=== PATIENT | female | born 1990 | race Caucasian/White ===

== ENCOUNTER → 2021-05-18 10:59 | Outpatient (CLI) | payer OTHER, SELFPAY ==
[2021-05-23 00:06] LABS: Chlamydia By Nucleic Acid AMP Negative (Negative)
[2021-05-23 12:08] LABS: Gonococcus By Nucleic Acid AMP Negative (Negative)
== END ==
PROVIDERS: Visit Provider Student in an Organized Health Care Education/Training Program
DX: Z11.3 Encounter for screening for infections with a predominantly sexual mode of transmission (principal)
CPT/HCPCS: 87491; 87591

== ENCOUNTER → 2021-05-26 08:56 | Outpatient (CLI) | payer OTHER, SELFPAY ==
[2021-05-26 09:45] LABS: Absolute Lymphocyte Count 1.54 X10^3/uL (0.83-4.51); Absolute Neutrophil Count 5.7 X10^3/uL (2.0-7.7); Basophil# 0.02 X10^3/uL; Basophil% 0.3 % (0-1); Eosinophil# 0.07 X10^3/uL; Eosinophils% 0.9 % (0-5); Hematocrit 36.3 % (37-47); Hemoglobin 11.7 g/dL (12.0-15.0); Lymphocyte # 1.54 X10^3/ul (0.83-4.51); Mean Corp Hgb Conc 32.2 g/dL (32-36); Mean Platelet Vol. 9.9 fl (6.2-12.0); Monocyte# 0.37 X10^3/uL; Monocyte% 4.8 % (0-10); NRBC Flagged by Analyzer 0 % (0-5); Neutrophil # 5.67 X10^3/uL (2.7-7.7); Neutrophil % 73.5 % (47-70); Platelet Count 267 K/mm3 (150-450); RBC Distribution Width CV 12.9 % (11.6-14.6); RBC Distribution Width SD 45.7 fl (35.1-43.9); Red Blood Count 3.78 M/mm3 (4.2-5.4); White Blood Count 7.7 K/mm3 (4.4-11.0)
[2021-05-26 10:44] LABS: HIV - WCH Non-Reactive (Nonreactive); Hepatitis B Surface Antigen Non-Reactive (Nonreactive); Hepatitis C Antibody Non-Reactive (Nonreactive); Rubella IgG Reactive (Nonreactive); Syphilis Antibodies Non-reactive
== END ==
PROVIDERS: Visit Provider Student in an Organized Health Care Education/Training Program
DX: Z34.81 Encounter for supervision of other normal pregnancy, first trimester (principal)
CPT/HCPCS: 36415; 85025; 86703; 86762; 86780; 86803; 87086; 87088; 87340

== ENCOUNTER 2021-09-14 10:55 | Outpatient (CLI) | payer OTHER, MEDICAID, SELFPAY ==
[2021-09-14 12:10] LABS: Hemoglobin 11.4 g/dL (12.0-15.0); Mean Corp Hgb Conc 33.5 g/dL (32-36); Mean Corpuscular Hgb 32.2 pg (27.0-32.0); Mean Platelet Vol. 9.7 fl (6.2-12.0); Platelet Count 331 K/mm3 (150-450); RBC Distribution Width CV 12.5 % (11.6-14.6); RBC Distribution Width SD 44.6 fl (35.1-43.9); Red Blood Count 3.54 M/mm3 (4.2-5.4); White Blood Count 9.3 K/mm3 (4.4-11.0)
[2021-09-14 12:12] LABS: Glucose Challenge Gest 1H 50g 123 mg/dL (70-140)
== END 2021-09-14 23:59 | disposition home or self-care (01) ==
PROVIDERS: Visit Provider Student in an Organized Health Care Education/Training Program
DX: Z34.83 Encounter for supervision of other normal pregnancy, third trimester (principal)
CPT/HCPCS: 36415; 82950; 85027

== ENCOUNTER → 2021-12-06 | Outpatient (CLI) | payer OTHER, MEDICAID, SELFPAY | END | disposition home or self-care (01) | LOC: LABSPEC 11:19 | PROVIDERS: Visit Provider Obstetrics & Gynecology | DX: Z36.85 Encounter for antenatal screening for Streptococcus B (principal) | CPT/HCPCS: 87077; 87081; 87186 ==

== ENCOUNTER 2021-12-28 16:50 | Inpatient (IN) | payer OTHER, MEDICAID, SELFPAY ==
[2021-12-28] VITALS (16 sets, daily range): BP systolic 97–124; BP diastolic 49–69; PULSE 56–88; RESP 16; TEMP 36.5–37.9; O2SAT 99–100; BMI 19.7
[2021-12-28] MEDS: LACTATED RINGERS 500 ML 999 ML IV (17:10)
[2021-12-28 17:18] LABS: Absolute Lymphocyte Count 2.52 X10^3/uL (0.83-4.51); Absolute Neutrophil Count 12.1 X10^3/uL (2.0-7.7); Basophil# 0.04 X10^3/uL; Basophil% 0.3 % (0-1); Eosinophil# 0.09 X10^3/uL; Eosinophils% 0.6 % (0-5); Hematocrit 38.3 % (37-47); Hemoglobin 12.8 g/dL (12.0-15.0); Lymphocyte # 2.52 X10^3/ul (0.83-4.51); Lymphocyte % 16.1 % (19-41); Mean Corp Hgb Conc 33.4 g/dL (32-36); Mean Corpuscular Hgb 31.3 pg (27.0-32.0); Mean Corpuscular Volume 93.6 fL (81-99); Mean Platelet Vol. 11.2 fl (6.2-12.0); Monocyte% 5.1 % (0-10); NRBC Flagged by Analyzer 0 % (0-5); Neutrophil # 12.13 X10^3/uL (2.7-7.7); Neutrophil % 77.2 % (47-70); Platelet Count 265 K/mm3 (150-450); RBC Distribution Width CV 13.2 % (11.6-14.6); RBC Distribution Width SD 45.1 fl (35.1-43.9); Red Blood Count 4.09 M/mm3 (4.2-5.4); White Blood Count 15.7 K/mm3 (4.4-11.0)
[2021-12-28] MEDS: Oxytocin 30 units/NS 500 ml 30 UNITS/500 ML IV.SOLN 334 UNITS IV (17:33)
--- NOTE | 2021-12-28 17:46 | HP.PCM.OB_ITS ---
History and Physical Date of Admission: 12/28/21 Chief complaint: Contractions History of present illness: 31-year-old at 39 weeks and 1 day with JARETT 01/03/2022 by 8-week ultrasound arrives with contractions. Denies headache, visual changes, chest pain, shortness of breath, nausea vomit, right upper quadrant pain. Patient states good movement. Obstetrical history: G1: 39-week male 07/2012 G2: 38-week male 10/2014 G3: 38-week male 04/2020 G4: Current Past medical history: None Medications: None Past surgical history: None Allergies: Penicillin Social history: Denies smoking, alcohol use, drug use Family history: Denies history DVT or PE Review of systems: Besides above pertinent positives a full review of systems was performed and found to be negative Physical exam: Vital signs: Blood pressure 114/56 pulse 85 temp 99.2 General: Normal-appearing no acute distress none HEENT: Normocephalic atraumatic no cervical of adenopathy cardiac/respiratory: 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
--- NOTE | 2021-12-28 17:50 | EX.PCM.OBRPT ---
Vaginal Delivery Findings Description of Procedure: Normal spontaneous vaginal delivery of a viable male , vertex SONJA. Head and shoulders delivered with ease. Cord cut and clamped. Baby handed off to patient. Placenta delivered via cord traction and fundal massage. No lacerations noted. EBL 300 cc Apgars 9/9
--- NOTE | 2021-12-28 21:40 | NURSING ---
Bedside shift report given to Mackenzie Bean RN. She will assume care at this time.
--- NOTE | 2021-12-28 22:57 | NURSING ---
2199 this RN receieved bedside report from ellie RN. this RN to assume care of pt at this time.
[2021-12-29 03:45] VITALS: BP 108/54; PULSE 64; RESP 16; TEMP 36.2
[2021-12-29 08:05] VITALS: BP 103/64; PULSE 55; RESP 18; TEMP 36.2; O2SAT 98
--- NOTE | 2021-12-29 08:56 | PCM.PN.OB ---
Subjective Subjective No complaints. Feels well. Denies painfulness, heavy lochia. She is . Voiding and ambulating without difficulty. Objective Data Objective Data Vital Signs: Vital Signs Temp Pulse Resp BP Pulse Ox 97.2 F L 64 16 108/54 L 99 12/29/21 03:45 12/29/21 03:45 12/29/21 03:45 12/29/21 03:45 12/28/21 23:40 Oxygen Delivery Method Room Air Weight: 52.163 kg Body Mass Index (BMI) 19.7 Intake & Output: Intake and Output for Last 24 Hours 12/27/21 12/28/21 12/29/21 23:59 23:59 23:59 Intake Total 749.75 / 749.75 Output Total 1200 / 1200 1000 / 1000 Balance -450.25 / -450.25 -1000 / -1000 Lab / Micro Data Result Diagrams: 12/28/21 17:00 Labs: Laboratory Results - last 24 hr 12/28/21 17:00: WBC 15.7 H, RBC 4.09 L, Hgb 12.8, Hct 38.3, MCV 93.6, MCH 31.3, MCHC 33.4, RDW Std Deviation 45.1 H, RDW Coeff of Alyse 13.2, Plt Count 265, MPV 11.2, Immature Gran % (Auto) 0.700, Neut % (Auto) 77.2 H, Lymph % (Auto) 16.1 L, [place] % (Auto) 5.1, Eos % (Auto) 0.6, Baso % (Auto) 0.3, Absolute Neuts (auto) 12.1 H, Absolute Lymphs (auto) 2.52, Nucleated RBC % 0 12/28/21 17:00: Blood Type A POSITIVE, Antibody Screen NEGATIVE Micro: Microbiology 12/28/21 21:30 Nasal Secretion SARS-CoV-2 Antigen (Rapid) - Final Physical Exam Const alert, oriented x3 and no apparent distress Resp normal respiratory effort and normal air movement Cardio regular rate, regular rhythm, S1 normal heart sound and S2 normal heart sound Uterus Palpation: uterus fundus firm and other OB fundus nontender Extremity no calf tenderness Neuro oriented x3 Assessment & Plan (1) (spontaneous vaginal delivery): PLAN: A positivie HBsAG neg, HIV nr, RPR nr, Rubella immune, HCV Ab neg Routine care Plan for d/c home tomorrow
[2021-12-29 12:10] VITALS: BP 104/61; PULSE 72; RESP 18; TEMP 36.4; O2SAT 98
[2021-12-29 17:05] VITALS: BP 101/57; PULSE 66; RESP 16; TEMP 36.4; O2SAT 97
[2021-12-29 20:37] VITALS: BP 113/53; PULSE 64; RESP 15; TEMP 36.4; O2SAT 100
[2021-12-30 02:04] VITALS: BP 100/57; PULSE 60; RESP 16; TEMP 36.3
--- NOTE | 2021-12-30 03:33 | PCM.DC ---
Discharge Instructions Diet Discharge Diet: No restrictions Activity Discharge Activity: Return to Normal Activity May resume sexual activity in: 4-6 weeks Lifting Restrictions: 20-25lb Dressing / Incision Call your doctor if you observe: Fever of 101 or Higher, Using more than 1 pad per hour, Shortness of breath, Chest pain, Calf discomfort, Uncontrolled pain and - (Persistent or severe headache) Follow Up Care Please Follow Up With: Shayy Yen DO When: 3 weeks for telehealth follow up 6 weeks for visit Test Results: Test results from this visit will be discussed in further detail at your follow-up appointment, if applicable. Discharge Plan Admission Admit Date/Time: 12/28/21 16:50 Primary Reason for Your Visit: Vaginal delivery Attending Provider: Zane Yen Discharge Orders/Prescriptions Prescriptions: New ibuprofen 600 mg Tablet 600 mg PO Q8H PRN PRN (Reason: Pain Score 1-3) Qty: 30 RF: 0 Disposition Disposition (needs filled in before D/C Order can be placed): Home, Self Care
--- NOTE | 2021-12-30 06:56 | PCM.PN.OB ---
Subjective Subjective No issues overnight and no complaints this morning. Feels well. Objective Data Objective Data Vital Signs: Vital Signs Temp Pulse Resp BP Pulse Ox 97.4 F L 60 16 100/57 L 100 12/30/21 02:04 12/30/21 02:04 12/30/21 02:04 12/30/21 02:04 12/29/21 20:37 Oxygen Delivery Method Room Air Weight: 52.163 kg Body Mass Index (BMI) 19.7 Intake & Output: Intake and Output for Last 24 Hours 12/28/21 12/29/21 12/30/21 23:59 23:59 23:59 Intake Total 749.75 / 749.75 Output Total 1200 / 1200 1000 / 1000 Balance -450.25 / -450.25 -1000 / -1000 Lab / Micro Data Result Diagrams: 12/28/21 17:00 Micro: Microbiology 12/28/21 21:30 Nasal Secretion SARS-CoV-2 Antigen (Rapid) - Final Physical Exam Const alert, oriented x3 and no apparent distress Resp normal respiratory effort and normal air movement Cardio regular rate, regular rhythm, S1 normal heart sound and S2 normal heart sound Uterus Palpation: uterus fundus firm and other OB fundus nontender Extremity no calf tenderness Neuro oriented x3 Assessment & Plan (1) (spontaneous vaginal delivery): PLAN: A pos, HBsAG neg, HIV nr, RPR nr, Rubella immune, HCV Ab neg Routine care d/c home
[2021-12-30 07:29] VITALS: BP 103/63; PULSE 66; RESP 16; TEMP 36.4; O2SAT 99
== END 2021-12-30 09:05 | disposition home or self-care (01) | DRG 807 ==
PROVIDERS: Admitting Provider Obstetrics & Gynecology; Visit Provider Obstetrics & Gynecology
DX: O62.3 Precipitate labor (principal); Z37.0 Single live birth; O99.824 Streptococcus B carrier state complicating childbirth; Z3A.39 39 weeks gestation of pregnancy
CPT/HCPCS: 59025; 59050; 85025; 86850; 86900; 86901; 87811; 99218; J7120; G0378

== ENCOUNTER → 2022-07-02 | Outpatient (CLI) | payer OTHER, MEDICAID, SELFPAY ==
[2022-07-11 13:34] LABS: HPV Reflexed? NOT INDICATED
== END | disposition home or self-care (01) ==
LOC: LABSPEC 13:53
PROVIDERS: Visit Provider Student in an Organized Health Care Education/Training Program
DX: Z12.4 Encounter for screening for malignant neoplasm of cervix (principal)
CPT/HCPCS: 88175; G0145